=== PATIENT | female | born 1990 | race Caucasian/White ===

== ENCOUNTER 2019-03-31 18:06 | Emergency (ER) | payer MEDICAID, OTHER ==
[~2019-03-31] VITALS: Ht 167.6 cm; Wt 86.2 kg
[~2019-03-31 18:06] MED LIST: ACET-8386 PO; IBUP-974 PO
[2019-03-31 18:16] VITALS: BP 134/73
--- NOTE | 2019-03-31 18:26 | NUR ---
VSS. WAIT IN LOBBY
--- NOTE | 2019-03-31 18:59 | NUR ---
PT AMBULATED TO ER BED 12
--- NOTE | 2019-03-31 19:04 | NUR ---
PT TO ED WITH C/O DIZZINESS INCREASING OVER THE LAST 48 HRS. PT DENIES N/V. PT REPORTS INCREASING LETHARGY. NO NEURO DEFECITS NOTED. ALERT TO NAME, BIRTHDAY, PLACE, AND EVENT. PT ABLE TO ANSWER QUESTIONS APPROPRIATLEY WITH FULL CLEAR SPEECH. PT PLACED INTO BED, PENDING MD PATTERSON.
--- NOTE | 2019-03-31 19:18 | NUR ---
RECEIVED REPORT FROM RED BURRELL.
[2019-03-31] MEDS ORDERED: ONDANSETRON 4 MG/2 ML VIAL IVP ONE (19:55)
[2019-03-31] MEDS ORDERED: NACL 0.9% 1,000 ML IV ONE (19:55)
--- NOTE | 2019-03-31 20:00 | NUR ---
LAB AT BEDSIDE.
--- NOTE | 2019-03-31 20:05 | NUR ---
EMT PERFORMING EKG AT BEDSIDE.
[2019-03-31 20:11] LABS: BASOPHILS % (AUTO) 0.3 % (0.0-2.0); EOSINOPHILS # (AUTO) 0.2 K/uL (0-0.4); EOSINOPHILS % (AUTO) 1.6 % (0.0-4.0); HEMATOCRIT 41.1 % (36-48); HEMOGLOBIN 14.2 g/dL (12.0-16.0); LYMPHOCYTES # (AUTO) 2.1 K/uL (2.5-16.5); MEAN CORPUSCULAR HEMOGLOBIN 30 pg (27-31); MEAN CORPUSCULAR HGB CONC 35 g/dL (33-37); MEAN CORPUSCULAR VOLUME 87.5 fL (80-94); MONOCYTES # (AUTO) 0.6 K/uL (0.8-1.0); NEUTROPHILS # (AUTO) 7.3 K/uL (1.8-7.7); NEUTROPHILS % (AUTO) 71.1 % (42.2-75.2); PLATELET COUNT (AUTO) 227 K/uL (140-450); RED CELL DISTRIBUTION WIDTH 13.1 % (11.6-13.7); WHITE BLOOD COUNT (AUTO) 10.2 K/uL (4.8-10.8)
[2019-03-31 20:26] LABS: ANION GAP 14.5 (8-16); CARBON DIOXIDE 25.5 mmol/L (21-32); CREATININE 0.8 mg/dL (0.6-1.3)
[2019-03-31 20:40] LABS: APPEARANCE,URINE CLEAR (CLEAR); BILIRUBIN,URINE NEGATIVE (NEGATIVE); BLOOD, URINE 2+ (NEGATIVE); COLOR,URINE YELLOW (YELLOW); LEUKOCYTE ESTERASE ,URINE NEGATIVE (NEGATIVE); NITRITE, URINE NEGATIVE (NEGATIVE); UGLUCOSE NEGATIVE (NEGATIVE)
[2019-03-31 20:41] LABS: ALBUMIN 3.7 g/dL (3.4-5.0); FREE T4 (FREE THYROXINE) 0.78 ng/dL (0.76-1.46); THYROID STIMULATING HORMONE 0.71 uIU/mL (0.34-3.74); TOTAL BILIRUBIN 0.2 mg/dL (0.0-1.0)
[2019-03-31 20:56] LABS: WBC,URINE 0-5 /HPF (0-5)
--- NOTE | 2019-03-31 21:21 | NUR ---
PT TAKEN TO CT.
--- NOTE | 2019-03-31 21:45 | NUR ---
PT REPORTS NO PAIN, NO NAUSEA. STATES SHE IS FEELING MUCH BETTER. VSS. SKIN PINK, WARM, DRY. BREATHING EVEN, UNLABORED.
[2019-03-31 21:56] VITALS: BP 114/43
--- NOTE | 2019-03-31 21:56 | NUR ---
Patient discharged with v/s stable. Written and verbal after care instructions given and explained. Patient alert, oriented and verbalized understanding of instructions. Ambulatory with steady gait. All questions addressed prior to discharge. ID band removed. Patient advised to stay hydrated, alternate between Tylenol and Motrin as needed for pain and follow up with PMD in 2-3 days. Return to ER if s/sx worsen. Rx of Zofran given. Patient educated on indication of medication including possible reaction and side effects. Opportunity to ask questions provided and answered.
== END 2019-03-31 21:56 | disposition home or self-care (01) ==
LOC: MED 18:06
DX: R42 Dizziness and giddiness (principal); R11.0 Nausea; H53.149 Visual discomfort, unspecified; Z79.899 Other long term (current) drug therapy
CPT/HCPCS: 36415; 70450; 80053; 81001; 81025; 84439; 84443; 85025; 93005; 96361; 96374; 99284; J2405; J7030

== ENCOUNTER 2024-01-31 02:49 | Emergency (ER) | payer OTHER ==
[~2024-01-31] VITALS: Ht 165.1 cm; Wt 81.6 kg
[~2024-01-31 02:49] MED LIST changes: -ACET-8386 PO; +ACET-8905 PO
[2024-01-31 02:50] VITALS: BP 108/66; PULSE 68; RESP 18; TEMP 97.8; O2SAT 97
[2024-01-31 03:23] VITALS: O2SAT 98
[2024-01-31] MEDS: NACL 0.9% 1,000 ML IV ONE (04:12)
[2024-01-31] MEDS: DICYCLOMINE 20 MG/2 ML VIAL IM ONE (04:13)
[2024-01-31] MEDS: ONDANSETRON 4 MG/2 ML VIAL IVP ONE (04:14)
[2024-01-31 05:15] LABS: BASOPHILS % (AUTO) 0.3 % (0.0-2.0); EOSINOPHILS # (AUTO) 0.1 K/uL (0-0.4); EOSINOPHILS % (AUTO) 1.2 % (0.0-4.0); HEMATOCRIT 41.1 % (36-48); HEMOGLOBIN 14.4 g/dL (12.0-16.0); LYMPHOCYTES # (AUTO) 2.1 K/uL (2.5-16.5); LYMPHOCYTES % (AUTO) 19.3 % (20.5-51.1); MEAN CORPUSCULAR HEMOGLOBIN 31 pg (27-31); MEAN CORPUSCULAR HGB CONC 35 g/dL (33-37); MEAN CORPUSCULAR VOLUME 87.4 fL (80-94); MONOCYTES # (AUTO) 0.6 K/uL (0.8-1.0); MONOCYTES % (AUTO) 5.8 % (1.7-9.3); NEUTROPHILS % (AUTO) 73.4 % (42.2-75.2); PLATELET COUNT (AUTO) 240 K/uL (140-450); RED BLOOD CELL COUNT(AUTO) 4.71 MIL/uL (4.20-5.40); WHITE BLOOD COUNT (AUTO) 10.9 K/uL (4.8-10.8)
[2024-01-31 05:22] LABS: CALCIUM 8.6 mg/dL (8.5-10.1); CARBON DIOXIDE 30.5 mmol/L (21-32); CREATININE 0.9 mg/dL (0.6-1.3); POTASSIUM 3.5 mmol/L (3.5-5.1)
[2024-01-31 05:25] LABS: ALBUMIN 3.3 g/dL (3.4-5.0); TOTAL BILIRUBIN 0.2 mg/dL (0.0-1.0); TOTAL PROTEIN, SERUM 6.6 g/dL (6.4-8.2)
[2024-01-31 05:28] LABS: APPEARANCE,URINE SL CLOUDY (CLEAR); BILIRUBIN,URINE NEGATIVE (NEGATIVE); BLOOD, URINE TRACE-I (NEGATIVE); COLOR,URINE YELLOW (YELLOW); LEUKOCYTE ESTERASE ,URINE NEGATIVE (NEGATIVE); NITRITE, URINE NEGATIVE (NEGATIVE); PROTEIN,URINE NEGATIVE (NEGATIVE); UGLUCOSE NEGATIVE (NEGATIVE); UROBILINOGEN,URINE 0.2 EU/dL (0.2 - 1)
[2024-01-31] MEDS ORDERED: MAG-27 PO (05:41)
[2024-01-31] MEDS ORDERED: ONDA-188 PO (05:41)
[2024-01-31] MEDS ORDERED: BEN10 PO (05:41)
[2024-01-31 06:02] VITALS: BP 99/59; PULSE 68; RESP 17; TEMP 97.7; O2SAT 97
== END 2024-01-31 06:02 | disposition home or self-care (01) ==
LOC: MED 02:49
DX: R10.12 Left upper quadrant pain (principal); R11.2 Nausea with vomiting, unspecified; Z79.899 Other long term (current) drug therapy
CPT/HCPCS: 36415; 80048; 80076; 81003; 81025; 83690; 85025; 96361; 96372; 96374; 99284; J0500; J2405; J7030

== ENCOUNTER 2024-03-06 00:18 | Emergency (ER) | payer OTHER ==
[~2024-03-06] VITALS: Ht 162.6 cm; Wt 85.3 kg
[~2024-03-06 00:18] MED LIST changes: +BEN10 PO; +MAG-27 PO; +ONDA-188 PO
[2024-03-06 00:34] VITALS: BP 119/78; PULSE 67; RESP 16; TEMP 96.9; O2SAT 98
[2024-03-06 00:55] VITALS: BP 119/78; PULSE 67; RESP 16; TEMP 96.9; O2SAT 99
[2024-03-06 01:25] LABS: BILIRUBIN,URINE NEGATIVE (NEGATIVE); BLOOD, URINE 1+ (NEGATIVE); COLOR,URINE YELLOW (YELLOW); LEUKOCYTE ESTERASE ,URINE NEGATIVE (NEGATIVE); NITRITE, URINE NEGATIVE (NEGATIVE); PROTEIN,URINE NEGATIVE (NEGATIVE); UGLUCOSE NEGATIVE (NEGATIVE); UROBILINOGEN,URINE 0.2 EU/dL (0.2 - 1)
[2024-03-06 01:27] LABS: APPEARANCE,URINE SLIGHTLY HAZY (CLEAR)
[2024-03-06 01:29] LABS: BASOPHILS % (AUTO) 0.2 % (0.0-2.0); EOSINOPHILS # (AUTO) 0.1 K/uL (0-0.4); EOSINOPHILS % (AUTO) 0.8 % (0.0-4.0); HEMATOCRIT 43.5 % (36-48); HEMOGLOBIN 14.9 g/dL (12.0-16.0); LYMPHOCYTES # (AUTO) 2.4 K/uL (2.5-16.5); MEAN CORPUSCULAR HEMOGLOBIN 30 pg (27-31); MEAN CORPUSCULAR HGB CONC 34 g/dL (33-37); MEAN CORPUSCULAR VOLUME 87.3 fL (80-94); MONOCYTES # (AUTO) 0.8 K/uL (0.8-1.0); MONOCYTES % (AUTO) 5.1 % (1.7-9.3); NEUTROPHILS # (AUTO) 11.8 K/uL (1.8-7.7); NEUTROPHILS % (AUTO) 77.9 % (42.2-75.2); PLATELET COUNT (AUTO) 248 K/uL (140-450); RED BLOOD CELL COUNT(AUTO) 4.98 MIL/uL (4.20-5.40); RED CELL DISTRIBUTION WIDTH 13.1 % (11.6-13.7); WHITE BLOOD COUNT (AUTO) 15.1 K/uL (4.8-10.8)
[2024-03-06] MEDS: KETOROLAC 30 MG/ML VIAL IVP ONE (01:32)
[2024-03-06] MEDS: NACL 0.9% 1,000 ML IV SCH (01:32)
[2024-03-06] MEDS: ONDANSETRON 4 MG/2 ML VIAL IVP ONE (01:33)
[2024-03-06 01:38] LABS: ANION GAP 16.2 (8-16); CALCIUM 8.9 mg/dL (8.5-10.1); CARBON DIOXIDE 24.4 mmol/L (21-32); CREATININE 0.8 mg/dL (0.6-1.3); POTASSIUM 3.6 mmol/L (3.5-5.1)
[2024-03-06 01:43] LABS: ALBUMIN 3.6 g/dL (3.4-5.0); BILIRUBIN,DIRECT 0.1 mg/dL (0.0-0.3); TOTAL BILIRUBIN 0.2 mg/dL (0.0-1.0); TOTAL PROTEIN, SERUM 7.2 g/dL (6.4-8.2)
[2024-03-06] MEDS: NACL 0.9% 1,000 ML IV ONE (02:55)
[2024-03-06 03:05] VITALS: O2SAT 99
[2024-03-06] MEDS ORDERED: BEN10 PO (05:00)
[2024-03-06] MEDS ORDERED: ONDA-188 SL (05:00)
[2024-03-06] MEDS ORDERED: PANT40EC PO (05:00)
== END 2024-03-06 05:07 | disposition home or self-care (01) ==
LOC: MED 00:18
DX: R10.12 Left upper quadrant pain (principal); R11.2 Nausea with vomiting, unspecified; Z79.1 Long term (current) use of non-steroidal anti-inflammatories (NSAID); Z79.899 Other long term (current) drug therapy; Z86.69 Personal history of other diseases of the nervous system and sense organs
CPT/HCPCS: 36415; 74176; 76705; 80048; 80076; 81003; 81025; 82150; 83690; 85025; 96361; 96374; 96375; 99285; J1885; J2405; J7030; Q0092

== ENCOUNTER 2024-05-10 16:57 | Inpatient (IN) | payer OTHER ==
[~2024-05-10] VITALS: Ht 165.1 cm; Wt 81.6 kg
[~2024-05-10 16:57] MED LIST changes: +ONDA-188 SL; +PANT40EC PO
[2024-05-10 17:07] VITALS: BP 148/89; PULSE 93; RESP 14; O2SAT 89
[2024-05-10 17:49] LABS: BASOPHILS # (AUTO) 0.1 K/uL (0.00-0.22); BASOPHILS % (AUTO) 0.6 % (0.0-2.0); EOSINOPHILS # (AUTO) 0.1 K/uL (0-0.4); EOSINOPHILS % (AUTO) 1.4 % (0.0-4.0); HEMOGLOBIN 14.1 g/dL (12.0-16.0); LYMPHOCYTES # (AUTO) 2.7 K/uL (2.5-16.5); LYMPHOCYTES % (AUTO) 26.2 % (20.5-51.1); MEAN CORPUSCULAR HEMOGLOBIN 30 pg (27-31); MEAN CORPUSCULAR HGB CONC 35 g/dL (33-37); MEAN CORPUSCULAR VOLUME 86.4 fL (80-94); MONOCYTES # (AUTO) 0.6 K/uL (0.8-1.0); MONOCYTES % (AUTO) 5.9 % (1.7-9.3); NEUTROPHILS # (AUTO) 6.8 K/uL (1.8-7.7); NEUTROPHILS % (AUTO) 65.9 % (42.2-75.2); PLATELET COUNT (AUTO) 273 K/uL (140-450); RED BLOOD CELL COUNT(AUTO) 4.74 MIL/uL (4.20-5.40); RED CELL DISTRIBUTION WIDTH 12.9 % (11.6-13.7); WHITE BLOOD COUNT (AUTO) 10.3 K/uL (4.8-10.8)
[2024-05-10 18:11] LABS: ANION GAP 16.2 (8-16); CALCIUM 8.9 mg/dL (8.5-10.1); CARBON DIOXIDE 22.5 mmol/L (21-32); CREATININE 0.8 mg/dL (0.6-1.3); POTASSIUM 3.7 mmol/L (3.5-5.1)
[2024-05-10 18:15] LABS: ALANINE AMINOTRANSFERASE 22 U/L (12-78); ALBUMIN 3.6 g/dL (3.4-5.0); ALKALINE PHOSPHATASE 92 U/L (50-136); ASPARTATE AMINOTRANSFERASE 14 U/L (15-37); BILIRUBIN,DIRECT 0.1 mg/dL (0.0-0.3); TOTAL BILIRUBIN 0.2 mg/dL (0.0-1.0); TOTAL PROTEIN, SERUM 7.5 g/dL (6.4-8.2)
[2024-05-10 18:17] LABS: INR 0.97 (0.8-1.2); PARTIAL THROMBOPLASTIN TIME 27.8 secs (22-35.6); PROTHROMBIN TIME 10.2 secs (10.8-13.4)
[2024-05-10] MEDS ORDERED: MECLIZINE 25 MG TAB ONE (18:29)
[2024-05-10] MEDS: MECLIZINE 25 MG TAB PO ONE (18:31)
[2024-05-10] MEDS: NACL 0.9% 1,000 ML IV ONE (18:36)
[2024-05-10] MEDS: LORazepam 1 MG TAB PO ONE (21:16)
[2024-05-10] MEDS ORDERED: ONDANSETRON 4 MG/2 ML VIAL IVP PRN (22:00)
[2024-05-10] MEDS ORDERED: MORPHINE SULFATE 2 MG/ML SYR IVP PRN (22:00)
[2024-05-10 23:05] VITALS: BP 112/73; PULSE 80; RESP 18; TEMP 97.2; O2SAT 98
[2024-05-10 23:06] VITALS: PULSE 86
[2024-05-11] VITALS (10 sets, daily range): BP systolic 101–123; BP diastolic 61–69; PULSE 61–80; RESP 16–18; TEMP 96.9–98.7; O2SAT 96–99
[2024-05-11] MEDS: DEXT 5% /NACL 0.9% 1,000 ML IV SCH (01:31)
[2024-05-11 06:35] LABS: BASOPHILS % (AUTO) 0.5 % (0.0-2.0); EOSINOPHILS # (AUTO) 0.2 K/uL (0-0.4); HEMATOCRIT 34.9 % (36-48); HEMOGLOBIN 12.2 g/dL (12.0-16.0); LYMPHOCYTES # (AUTO) 2.2 K/uL (2.5-16.5); MEAN CORPUSCULAR HEMOGLOBIN 30 pg (27-31); MEAN CORPUSCULAR HGB CONC 35 g/dL (33-37); MEAN CORPUSCULAR VOLUME 86.7 fL (80-94); MONOCYTES # (AUTO) 0.5 K/uL (0.8-1.0); MONOCYTES % (AUTO) 5.9 % (1.7-9.3); NEUTROPHILS # (AUTO) 4.8 K/uL (1.8-7.7); NEUTROPHILS % (AUTO) 62.6 % (42.2-75.2); PLATELET COUNT (AUTO) 231 K/uL (140-450); RED BLOOD CELL COUNT(AUTO) 4.03 MIL/uL (4.20-5.40); RED CELL DISTRIBUTION WIDTH 12.7 % (11.6-13.7); WHITE BLOOD COUNT (AUTO) 7.7 K/uL (4.8-10.8)
[2024-05-11 07:10] LABS: ALBUMIN 2.8 g/dL (3.4-5.0); ANION GAP 10.3 (8-16); CALCIUM 7.7 mg/dL (8.5-10.1); CARBON DIOXIDE 25.1 mmol/L (21-32); CREATININE 0.7 mg/dL (0.6-1.3); MAGNESIUM 1.7 mg/dL (1.8-2.4); POTASSIUM 3.4 mmol/L (3.5-5.1); TOTAL BILIRUBIN 0.4 mg/dL (0.0-1.0); TOTAL PROTEIN, SERUM 5.9 g/dL (6.4-8.2)
[2024-05-11] MEDS ORDERED: MECLIZINE 25 MG TAB PO PRN (11:50)
[2024-05-11] MEDS: ACETAMINOPHEN 325 MG TAB PO PRN (12:31)
[2024-05-12] VITALS: BP 106/66; PULSE 57; RESP 16; TEMP 96.6; O2SAT 97
[2024-05-12 04:00] VITALS: BP 112/78; PULSE 59; RESP 16; TEMP 96.2; O2SAT 98
[2024-05-12 08:00] VITALS: BP 92/54; PULSE 47; PULSE 64; RESP 17; TEMP 98.6; O2SAT 99
[2024-05-12] MEDS: APAP/BUTAL/CAFF 325/50/40 MG 1 TAB PO SCH (12:10)
== END 2024-05-12 13:51 | disposition home or self-care (01) | DRG 149 ==
LOC: MED 16:57 → MTU 22:05
PROVIDERS: ADMIT Hospitalist; ATTEND Hospitalist
DX: R42 Dizziness and giddiness (principal); H53.2 Diplopia; G40.909 Epilepsy, unspecified, not intractable, without status epilepticus; Z82.49 Family history of ischemic heart disease and other diseases of the circulatory system
CPT/HCPCS: 36415; 70450; 71045; 80048; 80053; 80076; 83735; 84484; 84703; 85025; 85610; 85730; 86886; 86900; 86901; 87081; 93005; 96360; 99291; J8597; Q0092; Q9967